=== PATIENT | female | born 1980 | race Asian ===

== ENCOUNTER 2018-10-04 19:51 | Inpatient (IN) | payer MEDICAID ==
[~2018-10-04] VITALS: Ht 162.6 cm; Wt 63.3 kg
[2018-10-04 20:11] VITALS: BP 123/74; PULSE 84; RESP 18; Ht 162.6 cm; Wt 63.3 kg
--- NOTE | 2018-10-04 20:54 | TRIAGE ---
OB Triage Datetime Report Generated by CPN: 10/04/2018 20:54 Datetime: 10/04/2018 20:49 Time of Arrival: 10/04/2018 19:43 EGA: 37.4 Arrived By: Wheelchair Arrived From: Home Movement: Present Contractions: Denies/Absent Rupture of Membranes: Denies Vaginal Bleeding: None Vaginal Discharge: Denies Recent Sexual Intercouse: Denies Abdominal Trauma: Not Applicable Patient Complaints: Other Additional Patient Complaints: Patient sent from for admission to Antepartum. Time Provider Notified: 10/04/2018 20:35 Provider Notified: Nargis Initial Plan: EFM, VS Datetime: 10/04/2018 20:00 Stage of : OB Triage Assessment Type: Triage Maternal Assessment Level of Consciousness: Fully Conscious DTR's/Clonus: DTRs 2+; No Clonus Headache: Denies Blurred Vision: No Respiratory Effort: Unlabored; Regular Rhythm; Equal Expansion Breath Sounds, Left: Clear and Equal Breath Sounds, Right: Clear and Equal Nausea/Vomiting: Denies RUQ Epigastric Pain: Denies Lower Extremities Edema: None Degree: None Upper Extremities Edema: None Degree: None Facial Edema: None Temperature Route: Oral Fall Risk Assessment History of Falling: (0) No Secondary Diagnosis: (0) No Ambulatory Aid: (0) Bedrest/Nurse Assist IV Therapy: (0) No Gait: (0) Normal/Bedrest/Immobile Mental Status: (0) Oriented to Own Ability Fall Score: 0 Fall Risk Score Definition: No Risk: No action required Labor Evaluation Monitor Mode: External Resting Tone [place]: Relaxed Contraction Comments: none Heart Rate FHR Baseline Rate: 135 Monitor Mode: External US Variability: Moderate 6-25 bpm Accelerations: 15X15 Category: Category I Pain Assessment Pain Scale: 0 Pain Presence: None/Denies Pain Type: N/A Pain Goal: 2 Pain Relief Measures: Comfort Measures
[2018-10-05] MEDS ORDERED: ACCU-CHEK XX SCH (06:00)
--- NOTE | 2018-10-05 10:59 | PERINOTE ---
Date/Time of Note Date/Time of Note DATE: 10/05/18 TIME: 10:47 Assessment/Recommendations Other Assessments IUP at 37+ weeks Gestational diabetes, previously without diet per patient Normal size for GA Recommendations: I would discharge this patient after she has received instruction in the diabetic diet. If possible, I would discharge her with a blood glucose meter. She states that her has a meter, and that she can use this when she returns home. She was instructed to check blood glucose fasting and post prandial. I would initiate twice weekly NST/weekly JOHAN after discharge and until delivery. I would like to have this patient seen in the Perinatology Office within the week to evaluate her blood glucose values. OB Subjective Free Text/Dictaton Patient admitted for diabetes out of control Patient reports that she was diagnosed with diabetes about 3 months ago. She was not placed on a diet and was not checking blood glucose. She was recently transferred to Dr. Ledesma, who admitted her for diabetes out of control. In the hospital, the patient has had normal blood glucose values (small sample size) and HgbA1c of 5.3%. EFW is 3299g, normal for GA. Previous resulted in a at term, patient denies diabetes in that . Patient reports weight of 6#8oz for the first baby. HD# 2 IUP @ 37W4D Complaints/Overnight events None Current Medications Current Medications Diagnostic Test (Pha) (Accu-Chek) 1 ea FBSPP XX ; Start 10/05/18 at 06:00 Past Medical History Medical History: no pertinent history Surgical History: no surgical history GEOCHEMIST History: no pertinent GEOCHEMIST history Para: 0 : 2 LMP (Females 10-50): Family History Significant Family History: no pertinent family hx OB Admission Exam Physical Exam Vitals: Vital Signs Date Temp Pulse Resp B/P (MAP) Pulse Ox O2 O2 Flow FiO2 Time Delivery Rate 10/04/18 98.3 84 18 123/74 Room Air 20:11 (90) Heart: Rhythm Normal Lungs: Clear Abdomen: WNL (Gravid) Heart Rate: 140's Accelerations: Accelerations Present Decelerations: No Decelerations Varibility: Moderate Contractions on Admission: >10 Minutes Apart Last 72 hourBlood Glucose Bedside Glucose - 72 Hours Test 10/04/18 23:37 3/30/19 08:45 Bedside Glucose 83 mg/dL (70-220) 76 mg/dL (70-220) Last 72 hours Lab Results CBC & BMP 10/04/18 22:17 Liver Function Test 10/04/18 22:17 Alanine Aminotransferase (ALT/SGPT) 18 Albumin 3.5 Alkaline Phosphatase 191 H Aspartate Amino Transf (AST/SGOT) 24 Direct Bilirubin 0.00 Total Protein 6.9 Hemoglobin A1C Test 10/04/18 22:17 Hemoglobin A1c 5.3 Ultrasound Results [facility] 8/ on 10/04 Copies To: CC: RONEN LEDESMA MD ; DIMITRIS ALVAREZ MD Oct 05, 2018 10:59
--- NOTE | 2018-10-05 15:50 | HP ---
Date/Time of Note Date/Time of Note DATE: 10/05/18 TIME: 15:47 OB - History Hx of Present Chief Complaint: uncontrolled GDM Estimated Due Date: Oct 22, 2018 : 2 Para: 1 Spontaneous : 0 Therapeutic : 0 Care: Good Care Ultrasounds: Normal mid trimester US Obstetrical Complications: Gestational Diabetes Medical Complications: None Past Family/Social History * Past Medical, Surgical, Family and Obstetric Histories reviewed from chart. GBS Status: Negative OB Admission Exam Vital Signs Vital Signs Vital Signs Date Temp Pulse Resp B/P (MAP) Pulse Ox O2 O2 Flow FiO2 Time Delivery Rate 10/04/18 98.3 84 18 123/74 Room Air 20:11 (90) Physical Exam HEENT: WNL Heart: Rhythm Normal Lungs: Clear, Equal Abdomen: WNL Extremities: Normal Reflexes: Normal Heart Rate: 120's Accelerations: Accelerations Present Decelerations: No Decelerations Varibility: Moderate Last 72 hourBlood Glucose Bedside Glucose - 72 Hours Test 10/04/18 23:37 10/05/18 08:45 10/05/18 11:31 10/05/18 14:28 Bedside 83 76 89 95 Glucose mg/dL (70-220) mg/dL (70-220) mg/dL (70-220) mg/dL (70-220) Last 72 hours Lab Results CBC & BMP 10/04/18 22:17 Liver Function Test 10/04/18 22:17 Alanine Aminotransferase (ALT/SGPT) 18 Albumin 3.5 Alkaline Phosphatase 191 H Aspartate Amino Transf (AST/SGOT) 24 Direct Bilirubin 0.00 Total Protein 6.9 Hemoglobin A1C Test 10/04/18 22:17 Hemoglobin A1c 5.3 OB Assessment/Plan Reason for admission: other Other Assessment: uncontrolled GDM Plan: Other Other plan: Per recommendation of Perinatology, Dr Pritchett, admit to antepartum. Diabetic diet AccuChecks Perinatology consult RONEN LEDESMA MD Oct 05, 2018 15:50
--- NOTE | 2018-10-05 15:52 | DS ---
Date/Time of Note Date/Time of Note DATE: 10/05/18 TIME: 15:51 Obstetrical Discharge Record Final Diagnosis Final Diagnosis: Term not delivered Other Final Diagnosis Gestational diabetes, controlled by diet Complications Gestational Diabetes Condition on Discharge Physical Assessment Voiding: Yes Bowel Movement: Yes Calf Tenderness: No Patient Condition: Stable RONEN LEDESMA MD Oct 05, 2018 15:52
== END 2018-10-05 16:01 | disposition home or self-care (01) | DRG 833 ==
LOC: OBT 19:51 → L-D 19:54 → OBT 20:35
PROVIDERS: ADMIT Obstetrics & Gynecology; ATTEND Obstetrics & Gynecology
DX: O24.419 Gestational diabetes mellitus in pregnancy, unspecified control (principal); Z3A.37 37 weeks gestation of pregnancy
CPT/HCPCS: 76815; 76818; 80053; 82962; 83036; 85025; G0463

== ENCOUNTER 2018-10-07 13:42 | Inpatient (IN) | payer MEDICAID ==
[~2018-10-07] VITALS: Ht 162.6 cm; Wt 62.6 kg
[2018-10-07 13:58] VITALS: BP 117/69; Ht 162.6 cm; Wt 62.6 kg
[2018-10-07] MEDS ORDERED: PREN1TAB71 PO (14:00)
--- NOTE | 2018-10-07 14:19 | TRIAGE ---
OB Triage Datetime Report Generated by CPN: 10/07/2018 14:19 Datetime: 10/07/2018 14:14 Time of Arrival: 10/07/2018 14:10 EGA: 38.0 Arrived By: Stretcher Arrived From: Other Unit in Hospital Datetime: 10/07/2018 13:54 Stage of : OB Triage Assessment Type: Triage Maternal Assessment Level of Consciousness: Fully Conscious DTR's/Clonus: DTRs 2+; No Clonus Headache: Denies Blurred Vision: No Respiratory Effort: Unlabored; Regular Rhythm; Equal Expansion Breath Sounds, Left: Clear and Equal Breath Sounds, Right: Clear and Equal Nausea/Vomiting: Denies RUQ Epigastric Pain: Denies Lower Extremities Edema: None Degree: None Upper Extremities Edema: None Degree: None Facial Edema: None Temperature Route: Oral Fall Risk Assessment History of Falling: (0) No Secondary Diagnosis: (0) No Ambulatory Aid: (0) Bedrest/Nurse Assist IV Therapy: (0) No Gait: (0) Normal/Bedrest/Immobile Mental Status: (0) Oriented to Own Ability Fall Score: 0 Fall Risk Score Definition: No Risk: No action required Monitor Mode: External Monitor Mode: External US Pain Assessment Pain Scale: 5 Pain Presence: Intermittent Pain Type: Contraction Pain Location: Abdomen Pain Goal: 0 Pain Relief Measures: Comfort Measures Vaginal Exam Dilatation (cms): 5.0 Effacement (%): 80 Station: -2 Exam By: Hany MEYER Datetime: 10/07/2018 13:53 Time of Arrival: 10/07/2018 13:33 EGA: 38.0 Arrived By: Ambulatory Arrived From: Home Chief Complaint: UC'S Movement: Present Time Contractions Began: 10/07/2018 09:30 Rupture of Membranes: Denies Vaginal Bleeding: None Vaginal Discharge: Denies Recent Sexual Intercouse: Denies Abdominal Trauma: Not Applicable Patient Complaints: Contractions Additional Patient Complaints: EFMX2, VE Time Provider Notified: 10/07/2018 14:15 Provider Notified: dr. chris Initial Plan: EFM, CALL MD Datetime: 10/05/2018 15:42 Stage of : Antepartum Datetime: 10/05/2018 15:09 Labor Evaluation Frequency: 0 Monitor Mode: External Pattern: Normal: <= 5 Contractions in 10 Minutes Resting Tone [place]: Relaxed Heart Rate FHR Baseline Rate: 135 Monitor Mode: External US Variability: Moderate 6-25 bpm Accelerations: 10X10 Decelerations: None Category: Category I Pain Assessment Pain Scale: 0 Pain Presence: None/Denies Pain Type: N/A Pain Goal: 3 Pain Relief Measures: Comfort Measures Datetime: 10/05/2018 14:26 Bedside Blood Glucose: 95 Datetime: 10/05/2018 13:53 Labor Evaluation Frequency: 0 Monitor Mode: External Pattern: Normal: <= 5 Contractions in 10 Minutes Resting Tone [place]: Relaxed Heart Rate FHR Baseline Rate: 155 Monitor Mode: External US Variability: Moderate 6-25 bpm Accelerations: 10X10 Decelerations: None Category: Category I Pain Assessment Pain Scale: 0 Pain Presence: None/Denies Pain Type: N/A Pain Goal: 3 Pain Relief Measures: Comfort Measures Datetime: 10/05/2018 12:44 Labor Evaluation Frequency: 0 Monitor Mode: External Pattern: Normal: <= 5 Contractions in 10 Minutes Resting Tone [place]: Relaxed Heart Rate FHR Baseline Rate: 145 Monitor Mode: External US Variability: Moderate 6-25 bpm Accelerations: 10X10 Decelerations: None Category: Category I Pain Assessment Pain Scale: 0 Pain Presence: None/Denies Pain Type: N/A Pain Goal: 3 Pain Relief Measures: Comfort Measures Datetime: 10/05/2018 12:13 Stage of : Antepartum Datetime: 10/05/2018 11:33 Labor Evaluation Frequency: 0 Monitor Mode: External Pattern: Normal: <= 5 Contractions in 10 Minutes Resting Tone [place]: Relaxed Heart Rate FHR Baseline Rate: 145 Monitor Mode: External US Variability: Moderate 6-25 bpm Accelerations: 10X10 Decelerations: None Category: Category I Pain Assessment Pain Scale: 0 Pain Presence: None/Denies Pain Type: N/A Pain Goal: 3 Pain Relief Measures: Comfort Measures Datetime: 10/05/2018 11:29 Bedside Blood Glucose: 89 Datetime: 10/05/2018 10:13 Stage of : Antepartum Labor Evaluation Frequency: X1 Monitor Mode: External Duration (sec)2399: 60 Quality: Mild Pattern: Normal: <= 5 Contractions in 10 Minutes Resting Tone [place]: Relaxed Heart Rate FHR Baseline Rate: 145 Monitor Mode: External US Variability: Moderate 6-25 bpm Accelerations: 10X10 Decelerations: None Category: Category I Pain Assessment Pain Scale: 0 Pain Presence: None/Denies Pain Type: N/A Pain Goal: 3 Datetime: 10/05/2018 08:51 Bedside Blood Glucose: 76 Labor Evaluation Frequency: 0 Monitor Mode: External Pattern: Normal: <= 5 Contractions in 10 Minutes Resting Tone [place]: Relaxed Comments: PLACED/ADJ SITTING UP EATING Pain Assessment Pain Scale: 0 Pain Presence: None/Denies Pain Type: N/A Pain Goal: 3 Pain Relief Measures: Comfort Measures Datetime: 10/05/2018 08:47 Assessment Type: Ongoing Assessment Maternal Assessment Level of Consciousness: Fully Conscious DTR's/Clonus: DTRs 2+; No Clonus Headache: Denies Blurred Vision: No Respiratory Effort: Unlabored; Regular Rhythm; Equal Expansion Breath Sounds, Left: Clear and Equal Breath Sounds, Right: Clear and Equal Nausea/Vomiting: Denies RUQ Epigastric Pain: Denies Facial Edema: None Fall Risk Assessment History of Falling: (0) No Secondary Diagnosis: (0) No Ambulatory Aid: (0) Bedrest/Nurse Assist IV Therapy: (0) No Gait: (0) Normal/Bedrest/Immobile Mental Status: (0) Oriented to Own Ability Fall Score: 0 Fall Risk Score Definition: No Risk: No action required Datetime: 10/05/2018 06:40 Stage of : Antepartum Maternal Assessment Level of Consciousness: Fully Conscious Labor Evaluation Frequency: x5 Duration (sec)2399: 60-70 Quality: Mild Resting Tone [place]: Relaxed Contraction Comments: Pt denies feeling UC's Pain Assessment Pain Scale: 0 Pain Presence: None/Denies Membrane Status: Intact Datetime: 10/05/2018 05:40 Stage of : Antepartum Maternal Assessment Level of Consciousness: Fully Conscious Labor Evaluation Frequency: x2 Quality: Mild (Annotations: Pt doesn't feel UC's) Resting Tone [place]: Relaxed Comments: US off Pain Assessment Pain Scale: 0 Pain Presence: None/Denies Membrane Status: Intact Datetime: 10/05/2018 05:09 Stage of : Antepartum Temperature Route: Oral Monitor Mode: External Monitor Mode: US OFF, NST every Shift Datetime: 10/05/2018 04:36 Stage of : Antepartum Maternal Assessment Level of Consciousness: Fully Conscious Labor Evaluation Frequency: x3 Duration (sec)2399: 50-70 Quality: Mild Pattern: Normal: <= 5 Contractions in 10 Minutes Resting Tone [place]: Relaxed Contraction Comments: Pt states she does not feel UC's Heart Rate FHR Baseline Rate: 125 Monitor Mode: External US FHR Baseline Changes: No Baseline Change Variability: Moderate 6-25 bpm Accelerations: 15X15 Decelerations: None Pain Assessment Pain Scale: 0 Pain Presence: None/Denies Membrane Status: Intact Datetime: 10/05/2018 03:51 Stage of : Antepartum Maternal Assessment Level of Consciousness: Fully Conscious Labor Evaluation Frequency: x2 Duration (sec)2399: 50-60 Quality: Mild Pattern: Normal: <= 5 Contractions in 10 Minutes Resting Tone [place]: Relaxed Contraction Comments: Pt states she does not feel UC's Heart Rate FHR Baseline Rate: 125 Monitor Mode: External US FHR Baseline Changes: No Baseline Change Variability: Moderate 6-25 bpm Accelerations: 15X15 Decelerations: None Pain Assessment Pain Scale: 0 Pain Presence: None/Denies Membrane Status: Intact Datetime: 10/05/2018 02:51 Stage of : Antepartum Maternal Assessment Level of Consciousness: Fully Conscious Labor Evaluation Frequency: none Heart Rate FHR Baseline Rate: 125 Monitor Mode: External US FHR Baseline Changes: No Baseline Change Variability: Moderate 6-25 bpm Accelerations: 15X15 Decelerations: None Pain Assessment Pain Scale: 0 Pain Presence: None/Denies Membrane Status: Intact Datetime: 10/05/2018 01:51 Stage of : Antepartum Maternal Assessment Level of Consciousness: Fully Conscious Labor Evaluation Frequency: none Heart Rate FHR Baseline Rate: 130 Monitor Mode: External US FHR Baseline Changes: No Baseline Change Variability: Moderate 6-25 bpm Accelerations: 15X15 Decelerations: None Pain Assessment Pain Scale: 0 Pain Presence: None/Denies Membrane Status: Intact Datetime: 10/05/2018 00:51 Stage of : Antepartum Maternal Assessment Level of Consciousness: Fully Conscious Labor Evaluation Frequency: none Heart Rate FHR Baseline Rate: 125 Monitor Mode: External US FHR Baseline Changes: No Baseline Change Variability: Moderate 6-25 bpm Accelerations: 15X15 Decelerations: None Pain Assessment Pain Scale: 0 Pain Presence: None/Denies Membrane Status: Intact Datetime: 10/04/2018 23:51 Stage of : Antepartum Maternal Assessment Level of Consciousness: Fully Conscious Labor Evaluation Frequency: none Heart Rate FHR Baseline Rate: 125 Monitor Mode: External US FHR Baseline Changes: No Baseline Change Variability: Moderate 6-25 bpm Accelerations: 15X15 Decelerations: None Pain Assessment Pain Scale: 0 Pain Presence: None/Denies Membrane Status: Intact Datetime: 10/04/2018 23:35 Stage of : Antepartum Bedside Blood Glucose: 83 Datetime: 10/04/2018 22:51 Stage of : Antepartum Maternal Assessment Level of Consciousness: Fully Conscious DTR's/Clonus: DTRs 2+; No Clonus Headache: Denies Breath Sounds, Left: Clear and Equal Breath Sounds, Right: Clear and Equal Nausea/Vomiting: Denies RUQ Epigastric Pain: Denies Temperature Route: Oral Labor Evaluation Frequency: none Heart Rate FHR Baseline Rate: 125 Monitor Mode: External US FHR Baseline Changes: No Baseline Change Variability: Moderate 6-25 bpm Accelerations: 15X15 Decelerations: None Pain Assessment Pain Scale: 0 Pain Presence: None/Denies Membrane Status: Intact Datetime: 10/04/2018 21:51 Stage of : Antepartum Assessment Type: Admission Assessment Vaginal Bleeding: None Maternal Assessment Level of Consciousness: Fully Conscious DTR's/Clonus: DTRs 2+; No Clonus Headache: Denies Blurred Vision: No Respiratory Effort: Unlabored; Regular Rhythm; Equal Expansion Breath Sounds, Left: Clear and Equal Breath Sounds, Right: Clear and Equal Nausea/Vomiting: Denies RUQ Epigastric Pain: Denies Lower Extremities Edema: None Upper Extremities Edema: None Facial Edema: None Temperature Route: Oral Fall Risk Assessment History of Falling: (0) No Secondary Diagnosis: (0) No Ambulatory Aid: (0) Bedrest/Nurse Assist IV Therapy: (0) No Gait: (0) Normal/Bedrest/Immobile Mental Status: (0) Oriented to Own Ability Fall Score: 0 Fall Risk Score Definition: No Risk: No action required Labor Evaluation Frequency: none Heart Rate FHR Baseline Rate: 125 Monitor Mode: External US FHR Baseline Changes: No Baseline Change Variability: Moderate 6-25 bpm Accelerations: 15X15 Decelerations: None Category: Category I Pain Assessment Pain Scale: 0 Pain Presence: None/Denies Membrane Status: Intact Datetime: 10/04/2018 20:49 EGA: 37.4 Datetime: 10/04/2018 20:00 Fall Score: 0 Fall Risk Score Definition: No Risk: No action required
[2018-10-07] MEDS ORDERED: LIDOCAINE 1% (MPF) 30 ML INJ INJ PRN (14:30)
[2018-10-07] MEDS ORDERED: CARBOPROST 250 MCG INJ IM PRN ×2 (14:30→23:30)
[2018-10-07] MEDS ORDERED: MISOPROSTOL 200 MCG TAB PR PRN ×2 (14:30→23:30)
[2018-10-07] MEDS ORDERED: BUTORPHANOL 1 MG INJ IV PRN (14:30)
[2018-10-07] MEDS ORDERED: OXYTOCIN 30 UNITS/LR 500 ML IV SCH ×3 (14:30→18:30)
[2018-10-07] MEDS ORDERED: OXYTOCIN 30 UNITS/LR 500 ML IV PRN ×2 (14:30→23:30)
[2018-10-07] MEDS ORDERED: METHYLERGONOVINE 0.2 MG INJ IM PRN ×2 (14:30→23:30)
[2018-10-07] MEDS ORDERED: BUTORPHANOL 2 MG INJ IV PRN (14:30)
[2018-10-07] MEDS: LACTATED RINGER'S 1,000 ML IV SCH ×3 (15:00→19:32)
--- NOTE | 2018-10-07 16:08 | PREAC ---
Date/Time of Note Date/Time of Note DATE: 10/07/18 TIME: 16:08 Anesthesia Eval and Record Evaluation Time Pre-Procedure Interview DATE: 10/07/18 TIME: 16:08 Age 37 Sex female NPO: 8 hrs Preoperative diagnosis labor pain Planned procedure labor epidural Past Medical History Past Medical History: None Surgery & Anesthesia Issues No known issue Meds Anticoagulation: No Beta [place] within 24 hr: No Reason Beta Tyrone not given: Pt. not on B-Tyrone Reported Medications Vit No.130/Iron/FA ( Tablet) 1 Each Tablet, 1 EACH PO 10/07/18 Current Medications Lactated Ringer's 1,000 ml @ 125 mls/hr Q8H IV Last administered on 10/07/18at 15:02; Admin Dose 125 MLS/HR; Start 10/07/18 at 14:15 Butorphanol Tartrate (Stadol) 1 mg Q2H PRN IV .PAIN; Start 10/07/18 at 14:30 Butorphanol Tartrate (Stadol) 2 mg Q2H PRN IV .PAIN; Start 10/07/18 at 14:30 Lidocaine (Xylocaine 1% (Mpf)) 30 ml ONCE PRN INJ .EPISIOTOMY; Start 10/07/18 at 14:30 Oxytocin/Lactated Ringer's 500 ml @ 500 mls/hr ONCE POST IV ; Start 10/07/18 at 14:30 Oxytocin/Lactated Ringer's 500 ml @ 125 mls/hr POST IV ; Start 10/07/18 at 14:30 Oxytocin/Lactated Ringer's 500 ml @ 0 mls/hr ONCE PRN IV .VAGINAL BLEEDING; Start 10/07/18 at 14:30 Methylergonovine Maleate (Methergine) 0.2 mg ONCE PRN IM .VAGINAL BLEEDING; Start 10/07/18 at 14:30 Carboprost Tromethamine (Hemabate) 250 mcg ONCE PRN IM .VAGINAL BLEEDING; Start 10/07/18 at 14:30 Misoprostol (Cytotec) 1,000 mcg ONCE PRN OR .VAGINAL BLEEDING; Start 10/07/18 at 14:30 Meds reviewed: Yes Allergies Coded Allergies: No Known Allergy (Unverified , 10/04/18) Allergies Reviewed: Yes Labs/Studies Labs Reviewed: Reviewed by anesthesiologist Result Diagram: 10/07/18 1430 Laboratory Tests 10/07/18 14:30 Blood Bank Test 10/07/18 14:30 Antibody Screen NEGATIVE Blood Type O POSITIVE Rh Immune Globulin Candidate NO test: Positive Pre-procedure Exam Last vitals Vital Signs Date Temp Pulse Resp B/P (MAP) Pulse Ox O2 O2 Flow FiO2 Time Delivery Rate 10/07/18 97.6 117/69 13:58 (85) Airway: Adequate mouth opening, Adequate thyromental dist Mallampati: Mallampati III Teeth: Normal Lung: Normal Heart: Normal ASA Physical Status ASA physical status: 2 Emergency: None Planned Anesthetic Neuraxial: Epidural Planned Pain Management Epidural, Parenteral pain med, Other neuraxial med Pre-operative Attestations Prior to commencing anesthesia and surgery, the patient was re-evaluated, there was verification of: *The patient's identity *The results of appropriate recent lab work and preoperative vital signs *The above evaluation not changing prior to induction *Anesthetic plan, risk benefits, alternative and complications discussed with patient/family; questions answered; patient/family understands, accepts and wishes to proceed. SRIKANTH SOTELO MD Oct 07, 2018 16:08
[2018-10-07] MEDS ORDERED: NALOXONE (0.4 MG/ML) INJ IV PRN (16:30)
[2018-10-07] MEDS ORDERED: FENTAnyl 2MCG/ML-ROPIV 0.2% 100 ML BAG EPI SCH (16:30)
[2018-10-07] MEDS ORDERED: DIPHENHYDRAMINE 50 MG INJ IV PRN (16:30)
[2018-10-07] MEDS ORDERED: HYDROmorphONE 0.5 MG/0.5 ML SYG IV PRN ×2 (16:30)
[2018-10-07] MEDS ORDERED: ONDANSETRON 4 MG INJ IV PRN (16:30)
[2018-10-07] MEDS ORDERED: KETOROLAC 30 MG INJ IV PRN (16:30)
[2018-10-07] MEDS ORDERED: ZOLPIDEM 5 MG TAB PO PRN (16:30)
--- NOTE | 2018-10-07 19:01 | HP ---
Date/Time of Note Date/Time of Note DATE: 10/07/18 TIME: 18:59 OB - History Hx of Present Chief Complaint: contractions Estimated Due Date: Oct 22, 2018 : 2 Para: 1 Spontaneous : 0 Therapeutic : 0 Care: Good Care Ultrasounds: Normal mid trimester US Obstetrical Complications: Gestational Diabetes Medical Complications: None Past Family/Social History * Past Medical, Surgical, Family and Obstetric Histories reviewed from chart. GBS Status: Negative OB Admission Exam Vital Signs Vital Signs Vital Signs Date Temp Pulse Resp B/P (MAP) Pulse Ox O2 O2 Flow FiO2 Time Delivery Rate 10/07/18 97.6 117/69 13:58 (85) Physical Exam HEENT: WNL Heart: Rhythm Normal Lungs: Clear, Equal Abdomen: WNL Extremities: Normal Reflexes: Normal Cervical Dilatation: 5cm Effacement: 75% Station: -1 Membranes: Intact Heart Rate: 120's Accelerations: Accelerations Present Decelerations: No Decelerations Varibility: Moderate Last 72 hourBlood Glucose Bedside Glucose - 72 Hours Test 10/07/18 15:48 Bedside Glucose 77 mg/dL (70-220) Last 72 hours Lab Results CBC & BMP 10/07/18 14:30 OB Assessment/Plan Reason for admission: active labor Plan: Expectant Management RONEN LEDESMA MD Oct 07, 2018 19:01
--- NOTE | 2018-10-07 19:39 | PAC ---
Date/Time of Note Date/Time of Note DATE: 10/07/18 TIME: 19:39 Post-Anesthesia Notes Post-Anesthesia Note Last documented vital signs Vital Signs Date Temp Pulse Resp B/P (MAP) Pulse Ox O2 O2 Flow FiO2 Time Delivery Rate 10/07/18 97.6 117/69 13:58 (85) Activity: WNL Respiratory function: WNL Cardiovascular function: WNL Mental status: Baseline Pain reasonably controlled: Yes Hydration appropriate: Yes Nausea/Vomiting absent: Yes SRIKANTH SOTELO MD Oct 07, 2018 19:39
--- NOTE | 2018-10-07 20:55 | LDN ---
Date/Time of Note Date/Time of Note DATE: 10/07/18 TIME: 20:51 Delivery Summary Weeks of Gestation 37 weeks and 6 days Placenta Delivered: Spontaneously Meconium: Light Episiotomy: No Laceration repair: First degree [id number] laceration repaired with 3-0 Vicryl. Anesthesia type: Epidural Estimated blood loss: 300 Sponge & Needle done & correct: Yes All needle counts correct: Yes Any foreign bodies felt in the: No Infant Delivery Information Sex Sex: male Apgars 1 Minute: 9 5 Minute: 9 Suctioning Nose & mouth suctioned at lety: No Delee suction performed: No Umbilical Cord Umbilical cord with: 3 Vessels Cord presentations: nuchal cord Nuchal cord present X: 1 Cord Blood was obtained: Yes Mother & Baby Disposition Disposition Mom & Baby to Maternity; Good: Yes RONEN LEDESMA MD Oct 07, 2018 20:55
[2018-10-07 23:00] VITALS: BP 124/62; PULSE 80; RESP 18
[2018-10-07 23:30] VITALS: BP 112/65; PULSE 78; RESP 16
[2018-10-07] MEDS ORDERED: HYDROCODONE/APAP (5/325) TAB PO PRN (23:30)
[2018-10-07] MEDS ORDERED: DIBUCAINE 1% 30 GM OINT TOP PRN (23:30)
[2018-10-07] MEDS ORDERED: ACETAMINOPHEN 325 MG TAB PO PRN (23:30)
[2018-10-07] MEDS ORDERED: WITCH HAZEL/GLYCERIN PAD PR PRN (23:30)
[2018-10-07] MEDS ORDERED: BENZOCAINE 20% 56 ML SPRAY TOP PRN (23:30)
[2018-10-07] MEDS: IBUPROFEN 600 MG TAB PO SCH (23:47)
[2018-10-08] MEDS: LACTATED RINGER'S 1,000 ML IV* SCH ×4 (01:28→23:24)
[2018-10-08 04:10] VITALS: BP 116/62; PULSE 78; RESP 16
[2018-10-08] MEDS: IBUPROFEN 600 MG TAB PO SCH ×4 (06:15→23:34)
[2018-10-08 08:00] VITALS: BP 127/71; PULSE 86; RESP 19
[2018-10-08] MEDS: SENNA/DOCUSATE NA (8.6MG/50MG) TAB PO SCH ×2 (10:15→21:08)
[2018-10-08 15:57] VITALS: BP 104/68; PULSE 82; RESP 18
[2018-10-08 20:00] VITALS: BP 121/58; PULSE 74; RESP 19
--- NOTE | 2018-10-08 22:23 | PN ---
Date/Time of Note Date/Time of Note DATE: 10/08/18 TIME: 22:21 OB Subjective Subjective Subjective PPD# 1 Patient is doing well. She denies nausea, vomiting, shortness of breath, chest pain, headache. She has been ambulating without difficulty, tolerating regular diet. Pain is well controlled on current medications OB Objective Objective Objective VS - Last 72 Hours, by Label Date Temp Pulse Resp B/P (MAP) Pulse Ox O2 O2 Flow FiO2 Time Delivery Rate 10/08/18 97.9 74 19 121/58 Room Air 20:00 (79) 10/08/18 98.1 82 18 104/68 Room Air 15:57 (80) 10/08/18 98.1 86 19 127/71 Room Air 08:00 (89) 10/08/18 98.4 78 16 116/62 Room Air 04:10 (80) 10/07/18 98.4 78 16 112/65 Room Air 23:30 (81) 10/07/18 98.5 80 18 124/62 Room Air 23:00 (82) 10/07/18 97.6 117/69 13:58 (85) General: AAO X 3, comfortable, NAD, appropriate mood and affect. ABD: +BS. Soft, non-tender. Uterus 2 cm below umbilicus Flank: No CVA tenderness (B/L) LE: Mild edema. No clubbing, cyanosis, thigh or calf tenderness (B/L). Homans 'sign is negative Laboratory Tests Test 10/07/18 14:30 10/07/18 15:48 10/07/18 19:57 10/08/18 06:43 White Blood Count 8.0 10^3/ul Red Blood Count 3.86 10^6/ul Hemoglobin 12.2 g/dl Hematocrit 36.5 % Mean Corpuscular 94.6 fl Volume Mean Corpuscular 31.6 pg Hemoglobin Mean Corpuscular 33.4 g/dl Hemoglobin Concen t Red Cell 11.9 % Distribution Width Platelet Count 200 10^3/UL Mean Platelet 9.9 fl Volume Immature 0.600 % Granulocytes % Neutrophils % 74.5 % Lymphocytes % 15.6 % Monocytes % 8.7 % Eosinophils % 0.5 % Basophils % 0.1 % Nucleated Red 0.0 /100WBC Blood Cells % Immature 0.050 10^3/ul Granulocytes # Neutrophils # 5.9 10^3/ul Lymphocytes # 1.2 10^3/ul Monocytes # 0.7 10^3/ul Eosinophils # 0.0 10^3/ul Basophils # 0.0 10^3/ul Nucleated Red 0.0 10^3/ul Blood Cells # Prothrombin Time 11.8 Sec Prothrombin Time 0.9 Ratio INR International 0.86 Normalized Ratio Activated 29.4 Sec Partial Thrombopl ast Time Rapid Plasma NONREACTIVE Reagin Bedside Glucose 77 mg/dL 70 mg/dL Lab Scanned REFERENCE Report LAB [id number] Test 10/08/18 07:15 White Blood Count 13.9 10^3/ul Red Blood Count 3.72 10^6/ul Hemoglobin 11.9 g/dl Hematocrit 35.4 % Mean Corpuscular 95.2 fl Volume Mean Corpuscular 32.0 pg Hemoglobin Mean Corpuscular 33.6 g/dl Hemoglobin Concen t Red Cell 12.1 % Distribution Width Platelet Count 190 10^3/UL Mean Platelet 10.4 fl Volume Immature 0.600 % Granulocytes % Neutrophils % 81.8 % Lymphocytes % 10.9 % Monocytes % 6.3 % Eosinophils % 0.3 % Basophils % 0.1 % Nucleated Red 0.0 /100WBC Blood Cells % Immature 0.080 10^3/ul Granulocytes # Neutrophils # 11.4 10^3/ul Lymphocytes # 1.5 10^3/ul Monocytes # 0.9 10^3/ul Eosinophils # 0.0 10^3/ul Basophils # 0.0 10^3/ul Nucleated Red 0.0 10^3/ul Blood Cells # OB Assessment/Plan Other plan: 37 years old 2 para 2001 s/p normal vaginal delivery. PPD#1 - AF, VSS - Baby is doing well, at bed side. She is bonding well - Contraception methods with R/B/A/FR discussed - Continue care - Discharge home tomorrow - Rx and instruction given - Follow up in 2 and 6 weeks at clinic JUD HUANG Oct 08, 2018 22:23
[2018-10-09 03:50] VITALS: BP 108/57; PULSE 72; RESP 18
[2018-10-09] MEDS: IBUPROFEN 600 MG TAB PO SCH ×2 (05:54→12:15)
[2018-10-09 07:35] VITALS: BP 116/68; PULSE 75; RESP 20
[2018-10-09] MEDS: SENNA/DOCUSATE NA (8.6MG/50MG) TAB PO SCH (08:20)
[2018-10-09] MEDS ORDERED: DIPHTH/TET/ACEL PERTUSS (ADULT) 0.5 ML VIAL IM* ONE (09:00)
--- NOTE | 2018-10-09 12:52 | DS ---
Date/Time of Note Date/Time of Note DATE: 10/09/18 TIME: 12:52 Obstetrical Discharge Record Final Diagnosis Final Diagnosis: Term delivered Other Final Diagnosis 37 years old 2 para 2002 s/p normal vaginal delivery. PPD#2. course is is unremarkable. She is ambulating and tolerating regular diet she is voiding without difficulty pain is controlled on current medication. - AF, VSS - Baby is doing well, at bed side. She is bonding well - Contraception methods with R/B/A/FR discussed - Continue care - Discharge home - Rx and instruction given - Follow up in 2 and 6 weeks at clinic Condition on Discharge Physical Assessment Voiding: Yes Bowel Movement: Yes Breast: Soft, non-tender Fundus: Firm Calf Tenderness: No Patient Condition: Stable JUD HUANG Oct 09, 2018 12:52
--- NOTE | 2018-10-10 15:21 | DELSUM ---
Delivery Summary A-C Datetime Report Generated by CPN: 10/10/2018 15:20 DELIVERY PERSONNEL Cutting Machine Tender: Marc-Chin, Estrelita MATERNAL INFORMATION Delivery Anesthesia: Epidural Medications in Delivery: OXYTOCIN Delivery QBL (ml): 300 Placenta Cultured: No Maternal Complications: None RN Comments: GBS NEG,RH-O POSITIVE,HEP NEGATIVE LABOR SUMMARY EDC: 10/22/2018 00:00 No. Babies in Womb: 1 Attempted: No Labor Anesthesia: Epidural LABOR INFORMATION Reason for Induction: Not Applicable Onset of Labor: 10/07/2018 09:30 Complete Dilatation: 10/07/2018 20:00 Oxytocin: Augmentation Group B Beta Strep: Negative Steroids Given: None Reason Steroids Not Administered: Not Applicable MEMBRANES Membranes Rupture Method: Artificial Rupture of Membranes: 10/07/2018 17:42 Length of Rupture (hr): 2.80 Amniotic Fluid Color: Light Meconium Amniotic Fluid Amount: Large Amniotic Fluid Odor: Normal STAGES OF LABOR Stage 1 hr: 10 Stage 1 min: 30 Stage 2 hr: 0 Stage 2 min: 30 Stage 3 hr: 0 Stage 3 min: 3 Total Time in Labor hr: 11 Total Time in Labor min: 3 VAGINAL DELIVERY Episiotomy: None Laceration Extension: First Degree Laceration Type: Perineal BABY A INFORMATION Delivery Date/Time: 10/07/2018 20:30 Method of Delivery: Vaginal Born in Route : No : N/A Forceps: N/A Vacuum Extraction: N/A Shoulder Dystocia : N/A SHOULDER DYSTOCIA BABY A Infant Delivery Date/Time: 10/07/2018 20:30 PRESENTATION/POSITION BABY A Presentation: Cephalic Cephalic Presentation: Vertex Vertex Position: Left Occipital Anterior Breech Presentation: N/A (Annotations: Data stored by [facility] on behalf of user) PLACENTA INFORMATION BABY A Placenta Delivery Time : 10/07/2018 20:33 Placenta Method of Delivery: Spontaneous Placenta Status: Delivered SCORES BABY A Heart Rate 1 min: >100 bpm Resp Effort 1 min: Good Cry Reflex Irritability 1 min: Cough/Sneeze/Pulls Away Muscle Tone 1 min: Active Motion Color 1 min: Body Bunn, Extremit Blue SCORE 1 MIN: 9 Heart Rate 5 min: >100 bpm Resp Effort 5 min: Good Cry Reflex Irritability 5 min: Cough/Sneeze/Pulls Away Muscle Tone 5 min: Active Motion Color 5 min: Body Bunn, Extremit Blue SCORE 5 MIN: 9 INFANT INFORMATION BABY A Gestational Age at Delivery: 37.6 Gestational Status: Early Term- 37- 38.6 Weeks Outcome : Liveborn Infant Condition : Stable Sex: Male IDENTIFICATION/MEDS BABY A ID Band Number: [id number] ID Band Location: Right Leg; Left Arm Sensor Applied: Yes Sensor Number: [id number] Sensor Location : Cord Clamp Vitamin K Given : Not Given Erythromycin Given: Not Given WEIGHT/LENGTH BABY A Birthweight (gm): 3110 Weight (lb): 6 Weight (oz): 14 Length (in): 19.00 Length (cm): 48.26 CORD INFORMATION BABY A No. Cord Vessels: 3 Nuchal Cord : N/A Cord Blood Taken: Yes ASSESSMENT BABY A Infant Complications: Multiple Variable Decels; Meconium Physical Findings at Delivery: Molding of the Head Infant Respirations: Appears Normal Certified Physician Assistant/ALS Called : Yes Care By: SHERIF LIMA RN Transferred To: Remains with Mother
== END 2018-10-09 15:05 | disposition home or self-care (01) | DRG 807 ==
LOC: L-D 13:42 → OBT 13:42 → L-D 14:10 → OBT 14:10 → L-D 14:53 → PP1 22:54
PROVIDERS: ADMIT Obstetrics & Gynecology; ATTEND Obstetrics & Gynecology
PROC: 10E0XZZ Delivery of Products of Conception, External Approach (ICD-10-PCS; principal; 2018-10-07)
PROC: 0HQ9XZZ Repair Perineum Skin, External Approach (ICD-10-PCS; 2018-10-07)
DX: O24.429 Gestational diabetes mellitus in childbirth, unspecified control (principal); Z37.0 Single live birth; O70.0 First degree perineal laceration during delivery; O69.81X0 Labor and delivery complicated by cord around neck, without compression, not applicable or unspecified; O77.0 Labor and delivery complicated by meconium in amniotic fluid; Z3A.37 37 weeks gestation of pregnancy; Z23 Encounter for immunization
CPT/HCPCS: 82962; 85025; 85610; 85730; 86592; 86850; 86900; 86901; 90715; 99464; G0463; J2590; J3010; J7120